=== PATIENT | male | born 1990 | race Two or more races ===

== ENCOUNTER 2024-08-11 13:10 | Outpatient (RCR) | payer MEDICAID, SELFPAY ==
--- NOTE | 2024-08-11 18:32 | CTCCONSULT_ITS ---
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 Paulie Lind PA-C [facility] Reason for consultation. Patient was suspected right testicular cancer with abdominal mets. History of Present Illness: Patient is a 33-year-old with right testicular pain mass noted for the past 9 months but delayed due to inability to find a specialist to deal with this problem according to patient, and was recently was seen at [facility] emergency room 07/18/2024. CT scan showed retroperitoneal adenopathy with surrounding inflammatory changes. Heterogeneous right testis mass measuring 5.8 cm. Ultrasound of the right testes enlarged and heterogeneous 5.8 x 4.4 x 4.3 cm. ER referred to another urologist who initially scheduled patient for follow-up but later denied due to insurance issues. Labs drawn at the ER of [facility] were unremarkable. Patient now referred to the cancer treatment center here at [facility] Past Medical History: Denies other than above Family history. Breast lung cancer colon cancer in extended family. No testicular cancers. Meds. Tramadol ibuprofen Allergies none to meds Social History: patient currently unemployed Review of Systems: Recent change in vision pain in abdomen recent back pain Physical Exam: General: Adequate nourished appearing gentleman in no acute distress HEENT: Atraumatic normocephalic extraocular is intact no oral lesion no cervical or supraclavicular adenopathy CV: Chest clear to auscultation heart regular rate and rhythm ABD: Soft and organomegaly or tenderness EXT: Large palpable right testicular mass 6 x 4 cm; normal feeling left testicle. Assessment: Plan:1. Likely right testicular malignancy with retroperitoneal mets noted radiographically. 2. Made contact with various urologists over the past few months but due to insurance issues surgery was never performed. 3. Will check tumor markers beta-hCG alpha-fetoprotein and LDH. 4. Refer patient to Dr. Gusman urologist 5. Will see patient in a month to check on the surgical path findings and labs. 6. Thank you very much for allowing. me to evaluate this patient. Cc: Paulie Lind PA-C [facility] Electronically signed by: Anthony Hubbard MD, DABR 08/11/2024 6:29 PM
== END 2024-08-22 23:59 | disposition home or self-care (01) ==
LOC: SCTC 13:10
PROVIDERS: PCP Physician Assistant Medical; Referring Provider Physician Assistant Medical; Visit Provider Radiology Therapeutic Radiology
DX: C62.11 Malignant neoplasm of descended right testis (principal); C79.89 Secondary malignant neoplasm of other specified sites
CPT/HCPCS: 99213; G0463

== ENCOUNTER 2024-09-13 06:10 | Day surgery (SDC) | payer MEDICAID, SELFPAY ==
[2024-09-12 12:19] VITALS: BMI 39.9
[2024-09-12 13:08] LABS: Basophils % (Auto) 0 % (0-2.5); Eosinophils # (Auto) 0.2 Thou/mm3 (0.0-0.5); Eosinophils % (Auto) 2 % (0-10); Hematocrit 42.5 % (41.0-53.0); Hemoglobin 14.4 g/dL (13.5-16.0); Immature Granulocytes % (Auto) 1 % (0-0); Immature Granulocytes Auto 0.07 Thou/mm3 (0.00-0.00); Lymphocytes % (Auto) 16 % (10-50); Mean Corpuscular HGB Conc 33.9 g/dl (31.0-37.0); Mean Corpuscular Hemoglobin 29.3 pg (25.0-35.0); Mean Corpuscular Volume 87 fL (80-100); Monocytes # (Auto) 1.3 Thou/mm3 (0.0-0.8); Monocytes % (Auto) 11 % (0-12); Neutrophils # (Auto) 8.6 Thou/mm3 (1.8-7.7); Neutrophils % (Auto) 71 % (37-80); Nucleated Red Blood Cell % 0 /100 WBC (0); Platelet Count 380 Thou/mm3 (140-440); RDW Standard Deviation 47.9 fL (35.1-43.9); Red Blood Count 4.91 Miln/mm3 (4.50-5.90); White Blood Count 12.2 Thou/mm3 (3.8-10.6)
[2024-09-12 13:21] LABS: Collection Type, Urine Clean Catch
[2024-09-12 13:28] LABS: Anion Gap 8 (7-16); BUN/Creatinine Ratio 12 Ratio (12-20); Blood Urea Nitrogen 15 mg/dL (9-23); Calcium 9.9 mg/dL (8.3-10.6); Carbon Dioxide 25.1 mMol/L (20.0-31.0); Chloride 105 mMol/L (98-107); Creatinine (Component) 1.3 mg/dL (0.6-1.3); Glucose 114 mg/dL (74-106); Osmolality,Calculated 277 (275-295); Potassium 3.6 mMol/L (3.4-5.1); Sodium 138 mMol/L (136-145); eGFR > 60 See Note
--- NOTE | 2024-09-12 13:55 | ESHP_ITS ---
RE: MIGUEL BROWN : 1990 DATE OF ADMISSION: 09/13/2024 HISTORY OF PRESENT ILLNESS: A 33-year-old gentleman who was referred to me by Dr. Anthony Hubbard. The patient has a right testicular tumor for about a year or more. He has been having some pain. PAST SURGICAL HISTORY: Included surgery on his neck for some abscess. PAST MEDICAL HISTORY: There is no history of diabetes mellitus. No history of hypertension. SOCIAL HISTORY: He has two children. ALLERGIES: NONE KNOWN. HOME MEDICATIONS: He takes; 1. Tramadol. 2. Motrin. PHYSICAL EXAMINATION: HEENT: Normal. NECK: Supple. LUNGS: Clear. CARDIOVASCULAR: Heart sounds are normal. VITAL SIGNS: The patient weighs 246 pounds. ABDOMEN: Soft. There is no organomegaly. There are no masses in his left neck. There are no palpable masses in his abdomen. GENITOURINARY: Phallus is normal. Testis are down in scrotum. There is a right-sided testicular tumor 3 to 4 inches in size. LABORATORY DATA: Right testicular ultrasound revealed a tumor in his right testis. KUB examination is negative. The patient had a CT scan of the abdomen and pelvis, which revealed lymph nodes are 2.1 cm in the retroperitoneal area. Chest x-ray is negative. IMPRESSION: Right testicular tumor, which is quite large. PLAN: Right testis exploration, possible frozen section, biopsy, and possible right radical orchiectomy. Planned procedure, risks and complications have been discussed with the patient. The patient has understood them and agreed to proceed. The patient had alpha- fetoprotein and beta ICG done before. Thank you very much for your kind referral and for allowing me to see this patient. cc: Anthony Hubbard MD DT: 13:33:09 TT: 13:53:00 Ref: [id number] - TID: [id number]
[2024-09-12 14:22] LABS: Bilirubin,Urine 1+ (Negative); Blood,Urine 1+ (Negative); Clarity,Urine Clear (Clear/Hazy); Color,Urine Drk-Yellow (Lt Yel-Yel); Glucose, Urine Negative (Negative); Hyaline Casts,Urine < 1 /hpf (0-1); Ketones,Urine Negative (Negative); Leukocyte Esterase,Urine Negative (Negative); Nitrite,Urine Negative (Negative); Protein,Urine 1+ (Neg - Trace); RBC,Urine 31 /hpf (0-3); Specific Gravity,Urine 1.041 (1.001-1.035); Squamous Epithelial Cell,Urine 1 /hpf (0-5); Urobilinogen,Urine 12 mg/dL (0.0-1.0); WBC,Urine 3 /hpf (0-5)
--- NOTE | 2024-09-12 15:11 | SUR.PREOP ---
WBC 12.2, Dr Gusman notified and Ok to proceed.
[2024-09-13] VITALS (8 sets, daily range): BP systolic 113–149; BP diastolic 78–92; PULSE 89–124; RESP 14–20; TEMP 36.2–36.9; O2SAT 95–98; BMI 39.4
--- NOTE | 2024-09-13 07:45 | CHAP ---
Prayed with patient for upcoming procedure.
[2024-09-13] MEDS: ALBUTEROL RT 2.5 MG/3 ML NEBU INH (07:58)
--- NOTE | 2024-09-13 10:10 | SUR.PHASEI ---
pt received from OR in recovery bay 3. pt asleep but responds to voice, breathing unlabored on oxymask 8l. v/s stable. pt dressing to right lower abd cdi. report received from Arron Alcaraz and Som CONROY.
--- NOTE | 2024-09-13 10:32 | XR_ITS ---
Examination: AP chest single view TECHNIQUE: Portable AP sitting chest single view Exam date and time: September 13, 2024 1042 hours INDICATIONS: Postoperative chest x-ray FINDINGS: No significant cardiac enlargement Mild vascular congestion No pneumonia or pulmonary edema Mild osteopenia IMPRESSION: Mild vascular congestion
[2024-09-13] MEDS: fentaNYL CIT INJ 50 mCg/ML AMP 2ML 25 MCG IV (10:36)
--- NOTE | 2024-09-13 11:16 | ESOP_ITS ---
RE: MIGUEL BROWN : 1990 DATE OF OPERATION: 09/13/2024 PREOPERATIVE DIAGNOSES: Large right testicular tumor 3-4 inches in size with CT scan showing lymph node enlargement in the retroperitoneum and high tumor markers for the testis including beta hCG and alpha-fetoprotein. POSTOPERATIVE DIAGNOSES: Large right testicular tumor 3-4 inches in size with CT scan showing lymph node enlargement in the retroperitoneum and high tumor markers for the testis including beta hCG and alpha-fetoprotein and right testicular tumor. PROCEDURE PERFORMED: Right testicular exploration, frozen section biopsy and right radical orchiectomy. ANESTHESIA: General by Dr. Mercado. INDICATION: The patient is a 33-year-old gentleman with a large right testicular tumor who has been having this tumor for more than a year. He has been seen by several urologists in [place], but he could not get any treatment. He was seen by Dr. Anthony Hubbard and he referred this patient to me for his large right scrotal mass, possibly a tumor of the right testis. The patient had a chest x-ray, which did not show any evidence of metastases. The patient had a CT scan of the abdomen and pelvis, which revealed retroperitoneal lymph nodes. The patient had beta hCG and alpha-fetoprotein. They both are high. The patient was now scheduled to have right testis exploration, frozen section biopsy of the right testis and possible right radical orchiectomy. Planned procedure, risks, and complications have been discussed with the patient. The patient understood them and agreed to proceed. DESCRIPTION OF PROCEDURE: After the patient was brought to the operating table under adequate general anesthesia given by Dr. Mercado, he was placed in supine position. Parts were prepped and draped in the usual fashion. The patient is quite obese. Right inguinal incision was then made approximately 4 inches long. Skin and subcutaneous tissues were incised. Hemostasis was obtained. External oblique aponeurosis was then opened. The external ring was opened. Spermatic cord structures were isolated and were swung on a quarter-inch Carmine drain, which was used as a tourniquet for the spermatic cord. The right testis was dissected from the surrounding structures and was delivered into the wound from the scrotum. The testis was opened and small segment was taken for the biopsy and was submitted to pathologist, which reported this to be a malignant tumor, so we decided to remove the right testis with a spermatic cord. Hemostats were placed on the spermatic cord at the internal ring. The vas deferens was ligated separately. The testis with its tumor and the spermatic cord were excised at the internal ring and the cord structures and vas deferens were ligated with 0 silk sutures. Complete hemostasis was obtained. The wound was irrigated with sterile water. External oblique aponeurosis was then closed with continuous sutures of 3-0 Vicryl. Subcutaneous tissue was closed with continuous sutures of 3-0 chromic gut. Local anesthetic was injected into the wound for the control of pain. Skin was reapproximated back by placing interrupted clips. Sterile dressing was then applied. The patient was then transferred to the recovery room in a satisfactory condition having tolerated the entire procedure well. Sponge count and needle count at the end of the procedure was found to be correct. Estimated blood loss was approximately 5 mL. cc: Anthony Hubbard MD DT: 10:40:10 TT: 11:15:00 Ref: [id number] - TID: [id number]
--- NOTE | 2024-09-13 11:20 | SUR.PHASEII ---
pt awake and alert, breathing unlabored on room air. v/s stable. pt dressing to lower abd cdi. pt able to ambulate to wheelchair with steady gait. d/c instructions given with mother Loyda, all questions answered. pt d/c via wheelchair with all belongings.
== END 2024-09-13 11:20 | disposition home or self-care (01) ==
PROVIDERS: PCP Radiology Therapeutic Radiology; Referring Provider Surgery; Visit Provider Surgery
PROC: (CPT 55110; principal; 2024-09-13 08:30)
PROC: (CPT 54530; 2024-09-13 08:30)
DX: C62.91 Malignant neoplasm of right testis, unspecified whether descended or undescended (principal); E66.9 Obesity, unspecified; Z68.39 Body mass index [BMI] 39.0-39.9, adult
CPT/HCPCS: 54530; 36415; 80048; 81001; 85025; A4217; A4649; J0690; J1100; J2250; J2405; J2704; J3010; J3490; L8330; J1596

== ENCOUNTER 2024-09-20 13:26 | Outpatient (RCR) | payer MEDICAID, SELFPAY ==
--- NOTE | 2024-09-08 14:41 | CTCFLWUP_ITS ---
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 Patient clearly has right testicular cancer with abdominal mets and now with apparent left neck mets. We are fortunate to have Dr. Gusman, experienced urologist who has seen patient with scheduled surgery for next week 09/13/2024. 08/18/2024 labs show high LDH of 397, beta-hCG 1191, AFP 11.4 Took the liberty of ordering a port and Dr. Cates's referral even before we have the pathology of removed testicle, for the obviously rapidly spreading testicular cancer. Assessment. 1. Rapidly spreading right testicular cancer now involving left neck. 2. chest abdomen pelvis along with neck CT due to the new appearance of a left neck mass. Prior CT of 07/19/2024 at [facility] did not have involvement of the neck 3. Port placement heme-onc referral. 4. Shall see patient again in 2 weeks following the surgery. Electronically signed by: Anthony Hubbard M.D. 09/08/2024 2:39 PM
== END 2024-09-21 23:59 | disposition home or self-care (01) ==
LOC: SCTC 13:26
PROVIDERS: PCP Physician Assistant Medical; Referring Provider Physician Assistant Medical; Visit Provider Radiology Therapeutic Radiology
DX: C62.11 Malignant neoplasm of descended right testis (principal); C79.89 Secondary malignant neoplasm of other specified sites; Z90.79 Acquired absence of other genital organ(s)
CPT/HCPCS: 99213; G0463

== ENCOUNTER 2024-09-27 06:37 | Outpatient (CLI) | payer MEDICAID, SELFPAY ==
[2024-09-22 10:42] VITALS: BMI 44.2
[2024-09-23 10:20] LABS: Basophils % (Auto) 0 % (0-2.5); Eosinophils # (Auto) 0.2 Thou/mm3 (0.0-0.5); Eosinophils % (Auto) 2 % (0-10); Hematocrit 37.6 % (41.0-53.0); Hemoglobin 12.7 g/dL (13.5-16.0); Immature Granulocytes % (Auto) 1 % (0-0); Immature Granulocytes Auto 0.06 Thou/mm3 (0.00-0.00); Lymphocytes # (Auto) 1.6 Thou/mm3 (1.0-4.8); Lymphocytes % (Auto) 16 % (10-50); Mean Corpuscular HGB Conc 33.8 g/dl (31.0-37.0); Mean Corpuscular Hemoglobin 29.1 pg (25.0-35.0); Mean Corpuscular Volume 86 fL (80-100); Monocytes % (Auto) 10 % (0-12); Neutrophils # (Auto) 7.1 Thou/mm3 (1.8-7.7); Neutrophils % (Auto) 71 % (37-80); Nucleated Red Blood Cell % 0 /100 WBC (0); Platelet Count 510 Thou/mm3 (140-440); Red Blood Count 4.36 Miln/mm3 (4.50-5.90)
[2024-09-23 10:34] LABS: INR 1.1 (0.9-1.3); Partial Thromboplastin Time 34.4 Seconds (22.0-36.0); Prothrombin Time 11.8 Seconds (9.0-12.2)
[2024-09-27] VITALS (17 sets, daily range): BP systolic 120–160; BP diastolic 71–104; PULSE 98–119; RESP 15–25; TEMP 36.8–36.9; O2SAT 92–100
--- NOTE | 2024-09-27 09:00 | XR_ITS ---
Examination: IR Venous implantation Port-A-Cath Ultrasound-guided needle placement right internal jugular vein. Fluoroscopy AP Chest, portable single view Exam date and time: September 27, 2024 1009 hours INDICATIONS: Diagnosis malignant neoplasm testis, requiring long-term intravenous chemotherapy. Informed consent provided Technique: A timeout was completed, verifying correct patient, procedure, site, positioning, and special equipment if applicable The patient was placed in a dependent position appropriate for central line placement based on the vein to be cannulated. The patient's right neck and chest was prepped and draped in sterile fashion. Maximum Sterile Barrier Technique used including cap, mask, sterile gown, sterile gloves, and sterile full body drape. If ultrasound technique used: sterile gel and sterile probe covers. Hand Hygiene performed using proper scrub, soap and water, or alcohol-based hand rub. Site right portable apparatus utilized to confirm patency of the right internal jugular vein Utilizing ultrasonographic guidance successful 21-gauge needle puncture into the right internal jugular vein Ultrasound images were recorded and stored. Successful micropuncture with a 21-gauge needle was performed. 0.18 wire guide was introduced into the IVC under fluoroscopic guidance. The wires is then exchanged for a 0.25 J-wire guide placed in the vena cava. Blunt dissection utilized to form subcutaneous pocket in the upper anterior chest 8 Turkish 23 cm Port-A-Cath lead then placed subcutaneous through a venous sheath into the right internal jugular vein in proper position under fluoroscopic guidance The attending radiologist was present for the entire procedure Estimated blood loss2 cc. Findings: Under fluoroscopy, the tip of the Port-A-Cath is in good position in the vena cava. Portable chest x-ray, post Port-A-Cath placement, as ordered. Impression: Successful ultrasound-guided needle placement right internal blood or vein. Successful and/or venous implantation Port-A-Cath Fluoroscopy 0.3 minute radiation dose 5.22 milligray 1 spot fluoroscopic chest film. AP portable chest completion procedure demonstrates satisfactory position Port-A-Cath tip SVC. May use Port-A-Cath
[2024-09-27] MEDS: SODIUM CHLORIDE 0.9% 500 ML 500 ML 100 ML IV (09:52)
[2024-09-27] MEDS: ceFAZolin/D5W 1 GM IVPB 1 GM/50 ML BAG IV (10:25)
[2024-09-27] MEDS: CEFAZOLIN STFIELD (10:30)
[2024-09-27] MEDS: DEXTROSE STFIELD (10:30)
[2024-09-27] MEDS: HEPARIN SOD LOCK SYR 100 UNIT/ML 500 UNIT STFIELD (10:30)
[2024-09-27] MEDS: fentaNYL CIT INJ 50 mCg/ML AMP 2ML 100 MCG IVP (11:02)
[2024-09-27] MEDS: LIDOCAINE INJ PF 1% 30 ML VIAL 10 ML INFL (11:05)
[2024-09-27] MEDS: LIDOCAINE 1% W/EPI 1:100K 20 ML VIAL 7 ML INFL (11:06)
[2024-09-27] MEDS: fentaNYL CIT INJ 50 mCg/ML AMP 2ML IV (11:10)
--- NOTE | 2024-09-27 13:38 | PC.NURSE ---
1136 patient is awake, alert, breathing unlabored, s/p port placement, dressing to right chest dry with no bleeding or hematoma, report received from Yao JADE, patient to recover for 1hr. 1230 Report given to Loyda JADE who will get patient ready to go home. Family at bedside.
== END 2024-09-27 13:05 | disposition home or self-care (01) ==
PROVIDERS: Radiology Diagnostic Radiology; PCP Family Medicine; Referring Provider Radiology Therapeutic Radiology; Visit Provider Radiology Therapeutic Radiology
DX: C62.11 Malignant neoplasm of descended right testis (principal); Z01.812 Encounter for preprocedural laboratory examination
CPT/HCPCS: 36558; 36415; 77001; 85025; 85610; 85730; J0689; J1642; J3010; J3490; J7040

== ENCOUNTER 2024-10-07 08:29 | Outpatient (RCR) | payer MEDICAID, SELFPAY ==
--- NOTE | 2024-10-02 21:08 | CTCCONSULT_ITS ---
Patient: RUDDY CEDILLO : 1990 MR#: [id number] Page 3 of 5 CONSULTATION NOTE DATE OF CONSULTATION: 09/29/2024 NAME: RUDDY CEDILLO ACCOUNT: [id number] : 1990 AGE: 34 REFERRING PHYSICIAN: Brooks Cates MD PRIMARY PHYSICIAN: REASON FOR VISIT: Testicular cancer establishing care ONCOLOGY HISTORY: DIAGNOSIS: Malignant neoplasm of descended right testis [ICD10] C62.11 DATE OF DIAGNOSIS: STAGE/TNM: Stage IIIc TREATMENT HISTORY: Care?Plan Start?Date Cycle Day Intent Cisplat?Etoposide?Bleomycin?q21?days?3?cycles 09/29/2024 1 21 Curative?(primary) HISTORY OF PRESENT ILLNESS: Subjective: Chief Complaint Pain, left supraclavicular mass, pain in both lower extremities History of Present Illness Ruddy Cedillo, a male patient with testicular cancer, presents for follow-up after a recent diagnosis and surgical intervention. He reports experiencing pain in both lower extremities and has a left supraclavicular mass. The patient was initially misdiagnosed with a urinary tract infection in June when he first sought medical attention. Upon a second visit, further imaging studies including MRIs and CTs were performed, leading to the diagnosis of testicular cancer. On September 13, 2024, the patient underwent a right radical orchiectomy. He has not worked since June 13, which may be contributing to his leg pain. Mr. Cedillo mentions having a little bit of pain right now, though the specific location and nature of this pain are not clearly stated. He reports pain in both legs, but it is unclear if this is a new symptom or a chronic condition. The patient also has a lump growing on his shoulder, identified as a lymph node, which is suspected to be cancerous. The patient's ability to work has been impacted, as he has not been employed since June 13. He typically wears knee pads for work, suggesting a physically demanding occupation. The patient has two children, though their ages are not specified. Medical History - Testicular cancer, diagnosed in June 2024 - Hospitalization at [facility] in June 2024 for testicular cancer workup - Emergency room visit for suspected urinary tract infection prior to cancer diagnosis Surgical History - Right radical orchiectomy on September 13, 2024 for testicular cancer Social History - Occupation: Patient has not worked since June 13 - Children: Has children (number and ages not specified) - Diet: Advised to reduce total calorie intake and follow a protein-rich diet with chicken, fish, and eggs - Exercise: Advised to do breathing exercises 3-4 times a day, walk, and stay active - Insurance: Medicare Review of Systems General: Positive for pain. Musculoskeletal: Positive for leg pain in both lower extremities. Respiratory: Negative for shortness of breath. Objective: Physical Examination General: Patient appears younger than stated age, looking like a 50-year-old man despite being much younger. Neck: Left supraclavicular mass noted. Musculoskeletal: Pain noted in both lower extremities. 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 Social History Note:?LIVES PARENTS AND CHILDREN MEDICATIONS: 1. cyclobenzaprine - 10 mg 1 tab Three times a day 2. gabapentin - 300 mg 1 Capsule Three times a day 3. ibuprofen - 800 mg Four times a day 4. traMADol - 50 mg 1 tab q6 5. tramadol - 50 mg As directed 6. Wellbutrin SR - 150 mg 1 Daily Medications Last Reconciled by Sameera Armstrong RN on 09/29/2024 ALLERGIES: No Known Drug Allergies REVIEW OF SYSTEMS: A complete 14-point review of systems was performed and is negative except as noted in interval history. PHYSICAL EXAMINATION: VITAL SIGNS: Temperature?99.1, B/P?123/86, Height?66?inches, Oxygen?Saturation?97% Weight?234?lbs (Change?since?09/20/24:?-4?lbs) PAIN: 8 - Very severe pain ECOG Performance Status: 0 - Asymptomatic and fully active GENERAL APPEARANCE: Appears well, in no apparent distress, appropriately interactive. HEENT: Normocephalic, no temporal wasting, normal conjunctiva, no scleral icterus, normal hearing, lips without lesions, neck normal range of motion. CARDIOVASCULAR: Not assessed. PULMONARY: Normal respiratory effort, no respiratory distress or use of accessory muscles, speaking in full sentences, no tachypnea. EXTREMITIES: Bilateral calf tenderness SKIN: Normal skin appearance. NEUROLOGIC: Alert and oriented x4. PSHYCHIATRIC: Appropriate affect, mood normal, behavior normal, intact thought and speech. LABORATORY DATA: I have personally reviewed and interpreted each of the patient?s relevant lab tests, abnormal findings are below: Date 09/12/24 09/23/24 ??WHITE?BLOOD?COUNT?(Thou/mm3) 12.2?H 10.0 ??RED?BLOOD?COUNT?(Miln/mm3) 4.91 4.36?L ??HEMOGLOBIN?(gm/dl) 14.4 12.7?L ??HEMATOCRIT?(%) 42.5 37.6?L ??PLATELET?COUNT?(Thou/mm3) 380 510?H ??NEUTROPHILS?%,?AUTO?(%) 71 71 ??LYMPH?%,?AUTO?(%) 16 16 ??NEUTROPHILS,?AUTO?(Thou/mm3) 8.6?H 7.1 ??GLUCOSE,RANDOM?(mg/dL) 114?H ? ??BLOOD?UREA?NITROGEN?(mg/dL) 15 ? ??CREATININE?(mg/dL) 1.30 ? ??SODIUM?(mmol/L) 138 ? ??POTASSIUM?(mmol/L) 3.6 ? ??CHLORIDE?(mmol/L) 105 ? ??CrCl?(CandG)?(ml/min) 95.75 ? ??CALCIUM,?SERUM?(mg/dL) 9.9 ? ASSESSMENT/PLAN: Assessment and Plan: Nguyen Fox, male patient with testicular cancer, presenting with pain and a left supraclavicular mass. Testicular Cancer Assessment: Patient diagnosed with testicular cancer, status post right radical orchiectomy on September 13, 2024. 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 Pre-orchiectomy labs showed elevated tumor markers: beta HCG 119.1, AFP 11.4, LDH 390.7. CT scan of chest negative for metastasis, but patient has a left supraclavicular mass, likely metastatic. Based on these findings, patient is assessed to have stage 3C testicular cancer. Plan: - Initiate chemotherapy regimen: BEP (Bleomycin, Etoposide, Cisplatin) for 4 cycles - Order CT scan of chest, abdomen, and pelvis with and without contrast - Order whole body scan - Schedule echocardiogram - Order ultrasound of both legs to evaluate for blood clots - Schedule chemo education class before treatment initiation - Refer patient to [facility] for higher-level care - Monitor for shortness of breath due to potential lung complications from chemotherapy - Advise patient on breathing exercises 3-4 times daily - Instruct patient to shower daily to prevent skin infections - Recommend protein-rich diet (chicken, fish, egg) and increased water intake - Advise weight loss and increased physical activity - Follow-up with repeat scans after 4 cycles of chemotherapy Bilateral Lower Extremity Pain Assessment: Patient reports pain in both legs. Given the recent cancer diagnosis and prolonged inactivity since June 13, there is concern for potential deep vein thrombosis. Plan: - Order bilateral lower extremity ultrasound to evaluate for blood clots - Encourage regular walking and exercise as tolerated RETURN TO CLINIC: BILLING AND COMPLIANCE: I reviewed external records from providers outside my specialty as summarized above. I spent a total of 50 minutes on this patient?s care on the day of their visit excluding time spent related to any billed procedures. This time includes time spent with the patient as well as time spent documenting in the medical record, reviewing patients records and tests, obtaining history, placing orders, communicating with other healthcare professionals, counseling the patient, family or caregiver, and/or care coordination for the diagnoses above. Electronically Signed by: Brooks Cates MD T: 9:06 PM CC: PCP: Referring: Brooks Cates This document was completed utilizing speech recognition software. Grammatical errors, random word insertions, pronoun errors, and incomplete sentences are an occasional consequence of this system due to software limitations, ambient noise, and hardware issues. Any formal questions or concerns about the content, text or information contained within the body of this dictation should be directly addressed to the provider for clarification.
== END 2024-10-22 23:59 | disposition home or self-care (01) ==
LOC: SCTC 08:29
PROVIDERS: PCP Family Medicine; Referring Provider Internal Medicine Hematology & Oncology; Visit Provider Internal Medicine Hematology & Oncology
DX: C62.11 Malignant neoplasm of descended right testis (principal); Z90.79 Acquired absence of other genital organ(s); M79.605 Pain in left leg; M79.604 Pain in right leg
CPT/HCPCS: 99213; G0463

== ENCOUNTER → 2024-10-11 | Outpatient (CLI) | payer MEDICAID, SELFPAY ==
--- NOTE | 2024-10-11 13:30 | XR_ITS ---
Examination: CT chest with intravenous contrast CT abdomen with intravenous contrast CT pelvis with intravenous contrast 2-D coronal and sagittal reconstructions Time of exam: October 11, 2024 1402 hours INDICATIONS: Diagnosis right testicular carcinoma one year ago, restaging CTDI: vol (mGy) : 20.4 DLP: (mGycm): 1685 Technique: Multiple axial images of the chest, abdomen and pelvis with intravenous contrast, 3.0 mm slice thickness. Images obtained post intravenous injection Isovue 370 60 cc. 2-D sagittal and coronal reconstructions. Low dose protocols were performed. One or more of the following dose reduction techniques were used; automated exposure control, adjustment of the mA and/or KV according to patient size, use of iterative reconstruction technique. Findings: No thoracic aortic aneurysm dilatation Pulmonary artery segments are not enlarged No paratracheal tracheobronchial or bronchopulmonary adenopathy 6 mm pulmonary nodule in the right middle lobe No pneumonia or pulmonary edema No visualized liver or splenic lesion No gallstones No pancreatic or adrenal mass Necrotic adenopathy pericaval, extending into the mesentery, the largest lymph node 35 mm, 42 mm Adenopathy extends into the right common iliac region including 18 mm, 16 mm lymph nodes Urinary bladder intact IMPRESSION: 6 mm pulmonary nodule right middle lobe Necrotic pericaval lymphadenopathy extending into the mesentery Right common iliac lymphadenopathy
--- NOTE | 2024-10-11 14:00 | XR_ITS ---
Examination: CT soft tissue neck, with intravenous contrast. 2-D coronal reconstructions. 2-D sagittal reconstructions. Date and time of exam :October 11, 2024 1402 hours INDICATIONS: Diagnosis malignant neoplasm testicle one year ago, staging. CTDI: vol (mGy):15.9 DLP: (mGycm):192 Technique: 1.25 mm axial sections of the neck of the obtained. Coronal and sagittal reconstructions have been obtained. Intravenous contrast administered 60 cc Isovue-370. Low dose protocols were performed. One or more of the following dose reduction techniques were used; automated exposure control, adjustment of the mA and/or KV according to patient size, use of iterative reconstruction technique. Findings: Bilateral carotid triangle lymph nodes, the largest on the left side 19 mm Symmetrical nasopharynx oropharynx Symmetrical submandibular gland Significant left supraclavicular lymphadenopathy, the largest lymph node 24 mm The larynx appears normal Epiglottis is not enlarged IMPRESSION: Metastatic lymphadenopathy as above The largest left supraclavicular lymph node is amenable to CT-guided biopsy as clinically warranted
== END | disposition home or self-care (01) ==
LOC: CCTX 13:45
PROVIDERS: PCP Family Medicine; Referring Provider Radiology Therapeutic Radiology; Visit Provider Radiology Therapeutic Radiology
DX: R59.0 Localized enlarged lymph nodes (principal); R91.1 Solitary pulmonary nodule; C62.11 Malignant neoplasm of descended right testis
CPT/HCPCS: 70491; 71260; 74177; A4649; Q9967

== ENCOUNTER 2024-11-21 07:06 | Outpatient (RCR) | payer MEDICAID, SELFPAY ==
--- NOTE | 2024-10-26 14:58 | CTCFLWUP_ITS ---
Patient: RUDDY CEDILLO : 1990 Page 2 of 2 FOLLOW UP NOTE DATE OF SERVICE: 10/26/2024 NAME: RUDDY CEDILLO ACCOUNT: [id number] : 1990 AGE: 34 INTERVAL HISTORY: Subjective: Chief Complaint Testicular pain and swelling, difficulty sleeping, depression History of Present Illness 34-year-old male with testicular cancer presenting for follow-up and chemotherapy planning. The patient reports discomfort and pain in his right testicle, which he describes as feeling like fluid. He mentions that one of his testicles has been removed. The patient is experiencing sleep disturbances and constantly requests massages for comfort. The patient's mother, who accompanies him, reports that he has been waiting for approximately a year to have the cancer removed. The patient appears depressed and fatigued, with his mother noting that he acts like a 70-year-old man despite being 34 years old. He has been having difficulty with self-care, including showering, and requires encouragement to walk. 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 That same night, he noticed his testicle had become smaller. He took a picture and sent it to his girlfriend, an [employer], who advised him to seek medical attention. The patient has not yet started chemotherapy. He reports completing a echo but has not undergone other scheduled tests including a brain MRI, ultrasound, and pulmonary function test (PFT). He has an upcoming appointment for lung testing on the . The patient has not completed a hearing test, stating he didn't have a problem with his hearing. Medications and Supplements - Bleomycin - Cisplatin - Topotecan Review of Systems General: Positive for fatigue. Genitourinary: Positive for testicular discomfort, swelling in right testicle. Musculoskeletal: Positive for inguinal hernia symptoms. Psychiatric: Positive for depression. Objective: Physical Examination General: Patient appears uncomfortable and tired. Genitourinary: Right testicle shows signs of fluid accumulation, possibly a hydrocele and small hard mass in scrotum. Small hernia noted. Lymphatic: Supraclavicular lymph node palpated. Laboratory, Imaging, and Diagnostic Test Results - CT scan: Necrotic pericaval lymphadenopathy extending into the mesentery. 6 mm nodule in the middle lobe. - Tumor markers: Elevated (specific values not provided) - LDH: Not performed ONCOLOGY HISTORY: DIAGNOSIS: Malignant neoplasm of descended right testis [ICD10] C62.11 DATE OF DIAGNOSIS: 09/13/2024 STAGE/TNM: Stage IIIc- non seminoma TREATMENT HISTORY: Care?Plan Start?Date Cycle Day Intent Cisplat?Etoposide?Bleomycin?q21?days?3?cycles 10/31/2024 1 21 Curative?(primary) HISTORY OF PRESENT ILLNESS: Subjective: Chief Complaint Pain, left supraclavicular mass, pain in both lower extremities History of Present Illness Ruddy Cedillo, a male patient with testicular cancer, presents for follow-up after a recent diagnosis and surgical intervention. He reports experiencing pain in both lower extremities and has a left supraclavicular mass. The patient was initially misdiagnosed with a urinary tract infection in June when he first sought medical attention. Upon a second visit, further imaging studies including MRIs and CTs were performed, leading to the diagnosis of testicular cancer. On September 13, 2024, the patient underwent a right radical orchiectomy. He has not worked since June 13, which may be contributing to his leg pain. Mr. Cedillo mentions having a little bit of pain right now, though the specific location and nature of this pain are not clearly stated. He reports pain in both legs, but it is unclear if this is a new symptom or a chronic condition. The patient also has a lump growing on his shoulder, identified as a lymph node, which is suspected to be cancerous. The patient's ability to work has been impacted, as he has not been employed since June 13. He typically wears knee pads for work, suggesting a physically demanding occupation. The patient has two children, though their ages are not specified. Medical History - Testicular cancer, diagnosed in June 2024 - Hospitalization at [facility] in June 2024 for testicular cancer workup - Emergency room visit for suspected urinary tract infection prior to cancer diagnosis Surgical History - Right radical orchiectomy on September 13, 2024 for testicular cancer Social History - Occupation: Patient has not worked since June 13 - Children: Has children (number and ages not specified) - Diet: Advised to reduce total calorie intake and follow a protein-rich diet with chicken, fish, and eggs - Exercise: Advised to do breathing exercises 3-4 times a day, walk, and stay active - Insurance: Medicare Review of Systems General: Positive for pain. Musculoskeletal: Positive for leg pain in both lower extremities. Respiratory: Negative for shortness of breath. Objective: Physical Examination General: Patient appears younger than stated age, looking like a 34-year-old man despite being much younger. Neck: Left supraclavicular mass noted. Musculoskeletal: Pain noted in both lower extremities. 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 - Composition: Embryonal carcinoma 90%, seminoma 10% - Staging: T3NX - Tumor size: 15x6.5x5 cm - Additional findings: Tumor directly invades spermatic cord soft tissue with or without lymphovascular invasion - Regional nodes: Not identified OTHER MEDICAL HISTORY/CONDITIONS: PRE-?DIABETES ALLERGIES?SEASONAL DENTAL??ABCESS??DRAINAGE FAMILY HISTORY: Children: GREAT AUNTS/ BREAST LUNG [employer] SOCIAL HISTORY: Education?Level:?Completed 11th grade Marital?Status:?Single Tobacco?Pack?per?Day:?1 Tobacco?Use?Years:?18 ETOH?Use:?DENIES Drug?Note:?USED?[facility] Social History Note:?LIVES PARENTS AND CHILDREN MEDICATIONS: 1. Compazine - 5 mg 5 mg Daily 2. cyclobenzaprine - 10 mg 1 tab Three times a day 3. gabapentin - 300 mg 1 Capsule Three times a day 4. ibuprofen - 800 mg Four times a day 5. ondansetron - 8 mg 8 mg Daily 6. traMADol - 50 mg 1 tab q6 7. tramadol - 50 mg As directed 8. Wellbutrin SR - 150 mg 1 Daily Medications Last Reconciled by Massiel Momin MA on 10/26/2024 ALLERGIES: No Known Drug Allergies REVIEW OF SYSTEMS: A complete 14-point review of systems was performed and is negative except as noted in interval history. PHYSICAL EXAMINATION: VITAL SIGNS: Temperature?98.4, B/P?135/89, Oxygen?Saturation?96% Weight?226?lbs (Change?since?10/07/24:?-1?lbs) PAIN: 3 - Between mild and moderate pain ECOG Performance Status: 1 - Symptomatic; ambulatory; restricted in strenuous activity GENERAL APPEARANCE: Appears well, in no apparent distress, appropriately interactive. HEENT: Normocephalic, no temporal wasting, normal conjunctiva, no scleral icterus, normal hearing, lips without lesions, neck normal range of motion. CARDIOVASCULAR: Not assessed. PULMONARY: Normal respiratory effort, no respiratory distress or use of accessory muscles, speaking in full sentences, no tachypnea. EXTREMITIES: Bilateral calf tenderness SKIN: Normal skin appearance. NEUROLOGIC: Alert and oriented x4. PSHYCHIATRIC: Appropriate affect, mood normal, behavior normal, intact thought and speech. LABORATORY DATA: I have personally reviewed and interpreted each of the patient?s relevant lab tests, abnormal findings are below: Date 09/12/24 09/23/24 ??WHITE?BLOOD?COUNT?(Thou/mm3) 12.2?H 10.0 ??RED?BLOOD?COUNT?(Miln/mm3) 4.91 4.36?L ??HEMOGLOBIN?(gm/dl) 14.4 12.7?L ??HEMATOCRIT?(%) 42.5 37.6?L ??PLATELET?COUNT?(Thou/mm3) 380 510?H ??NEUTROPHILS?%,?AUTO?(%) 71 71 ??LYMPH?%,?AUTO?(%) 16 16 ??NEUTROPHILS,?AUTO?(Thou/mm3) 8.6?H 7.1 ??GLUCOSE,RANDOM?(mg/dL) 114?H ? ??BLOOD?UREA?NITROGEN?(mg/dL) 15 ? ??CREATININE?(mg/dL) 1.30 ? ??SODIUM?(mmol/L) 138 ? ??POTASSIUM?(mmol/L) 3.6 ? ??CHLORIDE?(mmol/L) 105 ? ??CrCl?(CandG)?(ml/min) 95.75 ? ??CALCIUM,?SERUM?(mg/dL) 9.9 ? ASSESSMENT/PLAN: Assessment and Plan: Nguyen Peressse, male patient with testicular cancer, presenting with pain and a left supraclavicular mass. Testicular Cancer Assessment: Patient diagnosed with testicular cancer, status post right radical orchiectomy on September 13, 2024. 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 Pre-orchiectomy labs showed elevated tumor markers: beta HCG 119.1, AFP 11.4, LDH 390.7. CT scan of chest negative for metastasis, but patient has a left supraclavicular mass, likely metastatic. Based on these findings, patient is assessed to have stage 3C testicular cancer. Testicular Cancer (Non-seminoma) Patient diagnosed with non-seminoma testicular cancer. CT scan shows necrotic pericaval lymphadenopathy extending into the mesentery and a 6 mm nodule in the middle lobe. Supraclavicular lymph node involvement noted. Tumor markers are elevated, indicating cancer in the blood. Treatment has been delayed, and the patient has not yet started chemotherapy. The cancer is described as easily treatable, but prompt initiation of treatment is crucial. Plan: - Initiate chemotherapy regimen: - Bleomycin, Etoposide, Cisplatin (BEP) protocol - 4 cycles, each cycle lasting 21 days - Days 1-5: Etoposide and Cisplatin - Days 1, 8, 15: Bleomycin - Schedule first chemotherapy session for the upcoming Thursday - Obtain brain MRI (already authorized) - Refer to tertiary care center ([place]) for second opinion and potential future interventions. already authorized - Monitor tumor markers and LDH levels - Perform post-treatment imaging to assess response after 4 cycles - Educate patient on chemotherapy side effects and importance of hydration - Encourage daily walks and maintaining personal hygiene - Schedule follow-up appointments during non-chemotherapy weeks Bilateral Lower Extremity Pain Assessment: Patient reports pain in both legs. Given the recent cancer diagnosis and prolonged inactivity since June 13, there is concern for potential deep vein thrombosis. Plan: - Order bilateral lower extremity ultrasound to evaluate for blood clots and is negative - Encourage regular walking and exercise as tolerated Right Testicular Swelling Assessment: Patient reports increasing swelling in the right testicle. On examination, a hydrocele is suspected rather than cancer recurrence in the remaining testicle. Additionally, a small hernia is noted. Plan: - Monitor right scrotum for changes and follow with urology - Reassess hernia during follow-up visits Depression Assessment: Patient exhibits signs of depression, including decreased activity and self-care. This may be related to his cancer diagnosis and treatment delay. Plan: - Encourage increased physical activity, including daily walks - Promote self-care activities, such as regular showers - Monitor mood during treatment course RETURN TO CLINIC: BILLING AND COMPLIANCE: I reviewed external records from providers outside my specialty as summarized above. I spent a total of 50 minutes on this patient?s care on the day of their visit excluding time spent related to any billed procedures. This time includes time spent with the patient as well as time spent documenting in the medical record, reviewing patients records and tests, obtaining history, placing orders, communicating with other healthcare professionals, counseling the patient, family or caregiver, and/or care coordination for the diagnoses above. Electronically Signed by: Brooks Cates MD T: 2:56 PM CC: PCP: Referring: William Vegas This document was completed utilizing speech recognition software. Grammatical errors, random word insertions, pronoun errors, and incomplete sentences are an occasional consequence of this system due to software limitations, ambient noise, and hardware issues. Any formal questions or concerns about the content, text or information contained within the body of this dictation should be directly addressed to the provider for clarification.
[2024-10-28 11:46] LABS: Basophils % (Auto) 0 % (0-2.5); Eosinophils # (Auto) 0.1 Thou/mm3 (0.0-0.5); Eosinophils % (Auto) 1 % (0-10); Hematocrit 31.8 % (41.0-53.0); Hemoglobin 10.5 g/dL (13.5-16.0); Immature Granulocytes % (Auto) 1 % (0-0); Immature Granulocytes Auto 0.05 Thou/mm3 (0.00-0.00); Lymphocytes # (Auto) 1.2 Thou/mm3 (1.0-4.8); Lymphocytes % (Auto) 13 % (10-50); Mean Corpuscular Hemoglobin 27.7 pg (25.0-35.0); Mean Corpuscular Volume 84 fL (80-100); Monocytes # (Auto) 0.7 Thou/mm3 (0.0-0.8); Monocytes % (Auto) 7 % (0-12); Neutrophils # (Auto) 7.2 Thou/mm3 (1.8-7.7); Neutrophils % (Auto) 78 % (37-80); Nucleated Red Blood Cell % 0 /100 WBC (0); Platelet Count 401 Thou/mm3 (140-440); RDW Standard Deviation 47.8 fL (35.1-43.9); Red Blood Count 3.79 Miln/mm3 (4.50-5.90); White Blood Count 9.3 Thou/mm3 (3.8-10.6)
[2024-10-28 12:01] LABS: Alanine Aminotransferase 23 U/L (10-49); Albumin, Serum 4.1 gm/dL (3.5-5.0); Albumin/Globulin Ratio 1.5 (1.2-2.2); Alkaline Phosphatase 167 U/L (46-116); Anion Gap 10 (7-16); Aspartate Amino Transferase 17 U/L (0-34); BUN/Creatinine Ratio 11 Ratio (12-20); Bilirubin,Total 0.5 mg/dL (0.3-1.2); Blood Urea Nitrogen 9 mg/dL (9-23); Calcium 8.6 mg/dL (8.3-10.6); Calcium (Corrected) 8.6 mg/dL (8.5-10.1); Carbon Dioxide 27.2 mMol/L (20.0-31.0); Chloride 104 mMol/L (98-107); Creatinine (Component) 0.8 mg/dL (0.6-1.3); Globulin 2.7 gm/dL (2.3-3.5); Glucose 167 mg/dL (74-106); LDH (Lactate Dehydrogenase) 552 U/L (120-246); Magnesium 1.9 mg/dL (1.6-2.6); Osmolality,Calculated 283 (275-295); Potassium 3.6 mMol/L (3.4-5.1); Sodium 141 mMol/L (136-145); Total Protein 6.8 gm/dL (5.7-8.2); eGFR > 60 See Note
[2024-11-01 06:39] LABS: HCG Total,Male (Tumor Marker)* 2373 mIU/mL (<5)
[2024-11-07 08:43] LABS: Basophils % (Auto) 1 % (0-2.5); Eosinophils # (Auto) 0.3 Thou/mm3 (0.0-0.5); Eosinophils % (Auto) 4 % (0-10); Hematocrit 37.8 % (41.0-53.0); Hemoglobin 12.4 g/dL (13.5-16.0); Immature Granulocytes % (Auto) 1 % (0-0); Immature Granulocytes Auto 0.05 Thou/mm3 (0.00-0.00); Lymphocytes # (Auto) 1.3 Thou/mm3 (1.0-4.8); Lymphocytes % (Auto) 20 % (10-50); Mean Corpuscular HGB Conc 32.8 g/dl (31.0-37.0); Mean Corpuscular Hemoglobin 27.6 pg (25.0-35.0); Mean Corpuscular Volume 84 fL (80-100); Monocytes % (Auto) 0 % (0-12); Neutrophils % (Auto) 75 % (37-80); Nucleated Red Blood Cell % 0 /100 WBC (0); Platelet Count 385 Thou/mm3 (140-440); RDW Standard Deviation 46.7 fL (35.1-43.9); Red Blood Count 4.49 Miln/mm3 (4.50-5.90); White Blood Count 6.7 Thou/mm3 (3.8-10.6)
[2024-11-07 09:02] LABS: Magnesium 1.9 mg/dL (1.6-2.6)
[2024-11-07 09:11] LABS: Alanine Aminotransferase 70 U/L (10-49); Albumin, Serum 4.6 gm/dL (3.5-5.0); Albumin/Globulin Ratio 1.7 (1.2-2.2); Alkaline Phosphatase 132 U/L (46-116); Anion Gap 7 (7-16); Aspartate Amino Transferase 27 U/L (0-34); BUN/Creatinine Ratio 16 Ratio (12-20); Beta HCG,Quantitative 4428 mIU/mL; Bilirubin,Total 0.5 mg/dL (0.3-1.2); Blood Urea Nitrogen 14 mg/dL (9-23); Calcium 9.3 mg/dL (8.3-10.6); Calcium (Corrected) 9.3 mg/dL (8.5-10.1); Carbon Dioxide 27.1 mMol/L (20.0-31.0); Chloride 99 mMol/L (98-107); Creatinine (Component) 0.9 mg/dL (0.6-1.3); Globulin 2.7 gm/dL (2.3-3.5); Glucose 118 mg/dL (74-106); LDH (Lactate Dehydrogenase) 306 U/L (120-246); Osmolality,Calculated 267 (275-295); Potassium 3.9 mMol/L (3.4-5.1); Sodium 133 mMol/L (136-145); Total Protein 7.3 gm/dL (5.7-8.2); eGFR > 60 See Note
[2024-11-14 14:42] LABS: Basophils % (Auto) 1 % (0-2.5); Eosinophils # (Auto) 0.1 Thou/mm3 (0.0-0.5); Eosinophils % (Auto) 5 % (0-10); Hematocrit 30.7 % (41.0-53.0); Hemoglobin 10.1 g/dL (13.5-16.0); Immature Granulocytes % (Auto) 0 % (0-0); Lymphocytes # (Auto) 0.9 Thou/mm3 (1.0-4.8); Lymphocytes % (Auto) 45 % (10-50); Mean Corpuscular HGB Conc 32.9 g/dl (31.0-37.0); Mean Corpuscular Hemoglobin 27.6 pg (25.0-35.0); Mean Corpuscular Volume 84 fL (80-100); Monocytes # (Auto) 0.1 Thou/mm3 (0.0-0.8); Monocytes % (Auto) 6 % (0-12); Neutrophils # (Auto) 0.8 Thou/mm3 (1.8-7.7); Neutrophils % (Auto) 43 % (37-80); Nucleated Red Blood Cell % 0 /100 WBC (0); Platelet Count 92 Thou/mm3 (140-440); RDW Standard Deviation 46.1 fL (35.1-43.9); Red Blood Count 3.66 Miln/mm3 (4.50-5.90)
[2024-11-14 14:49] LABS: White Blood Count 1.9 Thou/mm3 (3.8-10.6)
[2024-11-14 15:10] LABS: Alanine Aminotransferase 30 U/L (10-49); Albumin, Serum 4.1 gm/dL (3.5-5.0); Albumin/Globulin Ratio 1.8 (1.2-2.2); Alkaline Phosphatase 125 U/L (46-116); Anion Gap 10 (7-16); Aspartate Amino Transferase 15 U/L (0-34); BUN/Creatinine Ratio 9 Ratio (12-20); Bilirubin,Total 0.3 mg/dL (0.3-1.2); Blood Urea Nitrogen 6 mg/dL (9-23); Calcium 9.1 mg/dL (8.3-10.6); Calcium (Corrected) 9.1 mg/dL (8.5-10.1); Carbon Dioxide 27.9 mMol/L (20.0-31.0); Chloride 102 mMol/L (98-107); Creatinine (Component) 0.7 mg/dL (0.6-1.3); Globulin 2.3 gm/dL (2.3-3.5); Glucose 134 mg/dL (74-106); Osmolality,Calculated 279 (275-295); Potassium 3.3 mMol/L (3.4-5.1); Sodium 140 mMol/L (136-145); Total Protein 6.4 gm/dL (5.7-8.2); eGFR > 60 See Note
[2024-11-14 17:31] LABS: Path Review Blood Smear Sent to Pathologist
[2024-11-18 06:44] LABS: HCG Total,Male (Tumor Marker)* 188 mIU/mL (<5)
[2024-11-21 07:55] LABS: Basophils % (Auto) 1 % (0-2.5); Eosinophils # (Auto) 0.2 Thou/mm3 (0.0-0.5); Eosinophils % (Auto) 3 % (0-10); Hematocrit 32.9 % (41.0-53.0); Immature Granulocytes % (Auto) 6 % (0-0); Immature Granulocytes Auto 0.34 Thou/mm3 (0.00-0.00); Lymphocytes # (Auto) 1.8 Thou/mm3 (1.0-4.8); Lymphocytes % (Auto) 32 % (10-50); Mean Corpuscular HGB Conc 33.4 g/dl (31.0-37.0); Mean Corpuscular Hemoglobin 28.7 pg (25.0-35.0); Mean Corpuscular Volume 86 fL (80-100); Monocytes # (Auto) 0.8 Thou/mm3 (0.0-0.8); Monocytes % (Auto) 14 % (0-12); Neutrophils # (Auto) 2.5 Thou/mm3 (1.8-7.7); Neutrophils % (Auto) 45 % (37-80); Nucleated Red Blood Cell # 0.04 Thou/mm3 (0.00-0.00); Nucleated Red Blood Cell % 1 /100 WBC (0); Platelet Count 289 Thou/mm3 (140-440); RDW Standard Deviation 48.5 fL (35.1-43.9); Red Blood Count 3.83 Miln/mm3 (4.50-5.90); White Blood Count 5.7 Thou/mm3 (3.8-10.6)
[2024-11-21 08:20] LABS: Alanine Aminotransferase 31 U/L (10-49); Albumin, Serum 4.1 gm/dL (3.5-5.0); Albumin/Globulin Ratio 1.5 (1.2-2.2); Alkaline Phosphatase 125 U/L (46-116); Anion Gap 6 (7-16); Aspartate Amino Transferase 16 U/L (0-34); BUN/Creatinine Ratio 8 Ratio (12-20); Bilirubin,Total 0.2 mg/dL (0.3-1.2); Blood Urea Nitrogen 6 mg/dL (9-23); Calcium 8.9 mg/dL (8.3-10.6); Calcium (Corrected) 8.9 mg/dL (8.5-10.1); Carbon Dioxide 26.8 mMol/L (20.0-31.0); Chloride 107 mMol/L (98-107); Creatinine (Component) 0.8 mg/dL (0.6-1.3); Globulin 2.7 gm/dL (2.3-3.5); Glucose 130 mg/dL (74-106); LDH (Lactate Dehydrogenase) 182 U/L (120-246); Magnesium 1.7 mg/dL (1.6-2.6); Osmolality,Calculated 279 (275-295); Potassium 3.4 mMol/L (3.4-5.1); Sodium 140 mMol/L (136-145); Total Protein 6.8 gm/dL (5.7-8.2); eGFR > 60 See Note
[2024-11-24 06:27] LABS: HCG Total,Male (Tumor Marker)* 19 mIU/mL (<5)
== END 2024-11-21 23:59 | disposition home or self-care (01) ==
LOC: SCTC 07:06
PROVIDERS: PCP Family Medicine; Referring Provider Family Medicine; Visit Provider Internal Medicine Hematology & Oncology
DX: Z51.11 Encounter for antineoplastic chemotherapy (principal); C62.11 Malignant neoplasm of descended right testis; F32.A Depression, unspecified; G47.9 Sleep disorder, unspecified; Z90.79 Acquired absence of other genital organ(s); M79.605 Pain in left leg; M79.604 Pain in right leg; N50.89 Other specified disorders of the male genital organs; K40.90 Unilateral inguinal hernia, without obstruction or gangrene, not specified as recurrent
CPT/HCPCS: 36415; 36591; 80053; 82105; 83615; 83735; 84702; 85025; 96367; 96368; 96375; 96409; 96411; 96413; 96417; 99212; 99424; 99425; A4216; J1100; J1200; J1453; J1642; J1938; J2150; J2405; J3475; J3480; J7030; J7040; J7050; J9040; J9060; J9181; A9270; G0463; J1940

== ENCOUNTER → 2024-11-21 | Outpatient (CLI) | payer MEDICAID, SELFPAY ==
--- NOTE | 2024-11-21 09:04 | XR_ITS ---
Examination: PA lateral chest 2 views TECHNIQUE: Upright PA lateral chest 2 views Exam date and time: November 21, 2024 0913 hours INDICATIONS: Diagnosis malignant neoplasm testis, chest pain radiating to the left side today FINDINGS: Right internal jugular Port-A-Cath tip right atrium Normal heart size Lungs are clear The osseous structures are intact IMPRESSION: No active disease
== END | disposition home or self-care (01) ==
LOC: CDIM 08:54
PROVIDERS: Referring Provider Internal Medicine Hematology & Oncology; Visit Provider Internal Medicine Hematology & Oncology
DX: C62.11 Malignant neoplasm of descended right testis (principal)
CPT/HCPCS: 71046

== ENCOUNTER → 2024-12-05 | Outpatient (CLI) | payer MEDICAID, SELFPAY ==
--- NOTE | 2024-12-05 10:12 | XR_ITS ---
Examination: PA lateral chest 2 views TECHNIQUE: Upright PA lateral chest 2 views Date and time: December 05, 2024 1021 hours Comparison November 21, 2024 INDICATIONS: Diagnosis malignant neoplasm right testis FINDINGS: Normal heart size. No pneumonia or pulmonary edema. No pulmonary nodules identified. Right internal jugular Port-A-Cath tip satisfactory position IMPRESSION: No active disease
== END | disposition home or self-care (01) ==
PROVIDERS: PCP Physician Assistant Medical; Referring Provider Internal Medicine Hematology & Oncology; Visit Provider Internal Medicine Hematology & Oncology
DX: C62.11 Malignant neoplasm of descended right testis (principal)
CPT/HCPCS: 71046

== ENCOUNTER → 2024-12-12 | Outpatient (CLI) | payer MEDICAID, SELFPAY ==
--- NOTE | 2024-12-12 16:30 | XR_ITS ---
Examination: MRI of brain without intravenous contrast. MRI brain with intravenous contrast. Date and time of exam:December 12, 2024, 1738 hours INDICATIONS: Blurred vision earaches beginning 3 months ago, diagnosis malignant neoplasm right testis Technique: Multiple axial and sagittal images of the brain to been obtained. Siemens high-resolution 1.52 Angela short bore scanner utilized. Sagittal sections, T1 weighted images, TR 500, TE 14, are performed. Axial sections proton-density and T2-weighted images have been obtained. Inversion recovery axial images, TR 9260, TE 111, TR 2500. Diffusion weighted images, axial sections, TR 4800, TE 128, B value 1000. Axial sections, ADC map, TR 4800, TE 128. Axial and coronal images were also obtained post 20 cc gadolinium administered intravenously. Findings:: Enlargement of the sella turcica is not present. The optic chiasm and infundibular stalk are not remarkable. There is no localized enlargement of the medulla or tova. Fourth ventricle and cerebellar tonsils appear normal in position. No subacute area of hemorrhage density is seen. Fourth ventricle is midline. Mass in the cerebellopontine angle region is not evident. 7th and 8th nerve complexes exhibit symmetry Globes are symmetrical Orbital musculature including medial lateral rectus muscles do not exhibit abnormality Increased white matter signal is not seen 10 mm probable sebaceous cyst in the left frontal scalp Effacement of the cortical sulcal markings is not identified. Mass effect upon the ventricular system is not identified. Diffusion-weighted images demonstrate no focus of restricted diffusions Mild ethmoid sinusitis Mild bilateral mastoiditis Contrast images demonstrate no abnormal enhancing cerebellar or cerebral lesions Impression: Negative for acute hemorrhage mass effect or midline shift No acute infarct No MR findings diagnostic for demyelinating disease Mild bilateral mastoiditis Mild chronic ethmoid sinusitis No abnormal enhancing cerebellar or cerebral lesions
== END | disposition home or self-care (01) ==
PROVIDERS: PCP Family Medicine; Referring Provider Internal Medicine Hematology & Oncology; Visit Provider Internal Medicine Hematology & Oncology
DX: J32.2 Chronic ethmoidal sinusitis (principal); H70.93 Unspecified mastoiditis, bilateral
CPT/HCPCS: 70553; A9579

== ENCOUNTER → 2024-12-16 | Outpatient (CLI) | payer MEDICAID, SELFPAY ==
--- NOTE | 2024-12-16 10:20 | XR_ITS ---
Examination: PA lateral chest 2 views TECHNIQUE: Upright PA lateral chest 2 views Date and time: December 16, 2024 1047 hours INDICATIONS: Diagnosis testicular cancer post surgery September 2024 FINDINGS: Normal heart size Right internal jugular Port-A-Cath tip satisfactory position. No pneumonia or pulmonary edema or pulmonary masses IMPRESSION: No pneumonia pulmonary edema or pulmonary masses
== END | disposition home or self-care (01) ==
PROVIDERS: PCP Physician Assistant Medical; Referring Provider Internal Medicine Hematology & Oncology; Visit Provider Internal Medicine Hematology & Oncology
DX: C62.11 Malignant neoplasm of descended right testis (principal)
CPT/HCPCS: 71046

== ENCOUNTER 2024-12-22 07:03 | Outpatient (RCR) | payer MEDICAID, SELFPAY ==
[2024-11-28 07:56] LABS: Basophils # (Auto) 0.1 Thou/mm3 (0.0-0.2); Basophils % (Auto) 1 % (0-2.5); Eosinophils # (Auto) 0.1 Thou/mm3 (0.0-0.5); Eosinophils % (Auto) 1 % (0-10); Hematocrit 36.2 % (41.0-53.0); Hemoglobin 11.8 g/dL (13.5-16.0); Immature Granulocytes Auto 0.48 Thou/mm3 (0.00-0.00); Lymphocytes # (Auto) 2.1 Thou/mm3 (1.0-4.8); Lymphocytes % (Auto) 19 % (10-50); Mean Corpuscular HGB Conc 32.6 g/dl (31.0-37.0); Mean Corpuscular Hemoglobin 28.4 pg (25.0-35.0); Mean Corpuscular Volume 87 fL (80-100); Monocytes # (Auto) 1.1 Thou/mm3 (0.0-0.8); Monocytes % (Auto) 10 % (0-12); Neutrophils # (Auto) 7.3 Thou/mm3 (1.8-7.7); Neutrophils % (Auto) 66 % (37-80); Nucleated Red Blood Cell # 0.00 Thou/mm3 (0.00-0.00); Nucleated Red Blood Cell % 0 /100 WBC (0); Platelet Count 495 Thou/mm3 (140-440); RDW Standard Deviation 62.2 fL (35.1-43.9); Red Blood Count 4.16 Miln/mm3 (4.50-5.90); White Blood Count 11.1 Thou/mm3 (3.8-10.6)
[2024-11-28 08:09] LABS: Magnesium 1.8 mg/dL (1.6-2.6)
[2024-11-28 08:11] LABS: Alanine Aminotransferase 24 U/L (10-49); Albumin, Serum 4.4 gm/dL (3.5-5.0); Albumin/Globulin Ratio 1.5 (1.2-2.2); Alkaline Phosphatase 138 U/L (46-116); Anion Gap 8 (7-16); Aspartate Amino Transferase 16 U/L (0-34); BUN/Creatinine Ratio 14 Ratio (12-20); Bilirubin,Total 0.2 mg/dL (0.3-1.2); Blood Urea Nitrogen 13 mg/dL (9-23); Calcium 9.5 mg/dL (8.3-10.6); Calcium (Corrected) 9.5 mg/dL (8.5-10.1); Carbon Dioxide 27.7 mMol/L (20.0-31.0); Chloride 105 mMol/L (98-107); Creatinine (Component) 0.9 mg/dL (0.6-1.3); Globulin 2.9 gm/dL (2.3-3.5); Glucose 108 mg/dL (74-106); LDH (Lactate Dehydrogenase) 229 U/L (120-246); Osmolality,Calculated 282 (275-295); Potassium 4.3 mMol/L (3.4-5.1); Sodium 141 mMol/L (136-145); Total Protein 7.3 gm/dL (5.7-8.2); eGFR > 60 See Note
[2024-11-28 08:21] LABS: AFP Non-Pregnant 3.40 ng/mL (<8.10)
[2024-12-01 06:31] LABS: HCG Total,Male (Tumor Marker)* <5 mIU/mL (<5)
[2024-12-05 10:46] LABS: Basophils # (Auto) 0.0 Thou/mm3 (0.0-0.2); Basophils % (Auto) 1 % (0-2.5); Eosinophils # (Auto) 0.3 Thou/mm3 (0.0-0.5); Eosinophils % (Auto) 3 % (0-10); Hematocrit 37.4 % (41.0-53.0); Hemoglobin 12.8 g/dL (13.5-16.0); Immature Granulocytes Auto 0.05 Thou/mm3 (0.00-0.00); Lymphocytes # (Auto) 1.2 Thou/mm3 (1.0-4.8); Lymphocytes % (Auto) 16 % (10-50); Mean Corpuscular HGB Conc 34.2 g/dl (31.0-37.0); Mean Corpuscular Hemoglobin 29.0 pg (25.0-35.0); Mean Corpuscular Volume 85 fL (80-100); Monocytes # (Auto) 0.1 Thou/mm3 (0.0-0.8); Monocytes % (Auto) 1 % (0-12); Neutrophils # (Auto) 5.8 Thou/mm3 (1.8-7.7); Neutrophils % (Auto) 79 % (37-80); Nucleated Red Blood Cell # 0.00 Thou/mm3 (0.00-0.00); Nucleated Red Blood Cell % 0 /100 WBC (0); Platelet Count 254 Thou/mm3 (140-440); RDW Standard Deviation 61.0 fL (35.1-43.9); Red Blood Count 4.41 Miln/mm3 (4.50-5.90); White Blood Count 7.4 Thou/mm3 (3.8-10.6)
[2024-12-05 10:54] LABS: Alanine Aminotransferase 38 U/L (10-49); Albumin, Serum 4.6 gm/dL (3.5-5.0); Albumin/Globulin Ratio 1.6 (1.2-2.2); Alkaline Phosphatase 114 U/L (46-116); Anion Gap 11 (7-16); Aspartate Amino Transferase 24 U/L (0-34); BUN/Creatinine Ratio 17 Ratio (12-20); Bilirubin,Total 0.8 mg/dL (0.3-1.2); Blood Urea Nitrogen 15 mg/dL (9-23); Calcium 9.6 mg/dL (8.3-10.6); Calcium (Corrected) 9.6 mg/dL (8.5-10.1); Carbon Dioxide 29.0 mMol/L (20.0-31.0); Chloride 95 mMol/L (98-107); Creatinine (Component) 0.9 mg/dL (0.6-1.3); Globulin 2.9 gm/dL (2.3-3.5); Glucose 153 mg/dL (74-106); Osmolality,Calculated 273 (275-295); Potassium 3.8 mMol/L (3.4-5.1); Sodium 135 mMol/L (136-145); Total Protein 7.5 gm/dL (5.7-8.2); eGFR > 60 See Note
[2024-12-12 12:32] LABS: Basophils # (Auto) 0.0 Thou/mm3 (0.0-0.2); Basophils % (Auto) 1 % (0-2.5); Eosinophils # (Auto) 0.1 Thou/mm3 (0.0-0.5); Eosinophils % (Auto) 4 % (0-10); Hematocrit 28.8 % (41.0-53.0); Hemoglobin 9.4 g/dL (13.5-16.0); Immature Granulocytes Auto 0.00 Thou/mm3 (0.00-0.00); Lymphocytes # (Auto) 0.9 Thou/mm3 (1.0-4.8); Lymphocytes % (Auto) 42 % (10-50); Mean Corpuscular HGB Conc 32.6 g/dl (31.0-37.0); Mean Corpuscular Hemoglobin 29.3 pg (25.0-35.0); Mean Corpuscular Volume 90 fL (80-100); Monocytes # (Auto) 0.1 Thou/mm3 (0.0-0.8); Monocytes % (Auto) 6 % (0-12); Neutrophils # (Auto) 1.0 Thou/mm3 (1.8-7.7); Neutrophils % (Auto) 47 % (37-80); Nucleated Red Blood Cell # 0.00 Thou/mm3 (0.00-0.00); Nucleated Red Blood Cell % 0 /100 WBC (0); RDW Standard Deviation 65.4 fL (35.1-43.9); Red Blood Count 3.21 Miln/mm3 (4.50-5.90)
[2024-12-12 12:45] LABS: Platelet Count 73 Thou/mm3 (140-440); White Blood Count 2.2 Thou/mm3 (3.8-10.6)
[2024-12-12 12:48] LABS: Alanine Aminotransferase 14 U/L (10-49); Albumin, Serum 3.9 gm/dL (3.5-5.0); Albumin/Globulin Ratio 1.7 (1.2-2.2); Alkaline Phosphatase 93 U/L (46-116); Anion Gap 7 (7-16); Aspartate Amino Transferase 11 U/L (0-34); BUN/Creatinine Ratio 10 Ratio (12-20); Bilirubin,Total 0.2 mg/dL (0.3-1.2); Blood Urea Nitrogen 8 mg/dL (9-23); Calcium 8.9 mg/dL (8.3-10.6); Calcium (Corrected) 9.0 mg/dL (8.5-10.1); Carbon Dioxide 26.8 mMol/L (20.0-31.0); Chloride 106 mMol/L (98-107); Creatinine (Component) 0.8 mg/dL (0.6-1.3); Globulin 2.3 gm/dL (2.3-3.5); Glucose 118 mg/dL (74-106); Osmolality,Calculated 278 (275-295); Potassium 3.8 mMol/L (3.4-5.1); Sodium 140 mMol/L (136-145); Total Protein 6.2 gm/dL (5.7-8.2); eGFR > 60 See Note
[2024-12-12 14:00] LABS: Slide Review Platelets confirmed
[2024-12-16 10:14] LABS: Basophils # (Auto) 0.0 Thou/mm3 (0.0-0.2); Basophils % (Auto) 1 % (0-2.5); Eosinophils # (Auto) 0.1 Thou/mm3 (0.0-0.5); Eosinophils % (Auto) 5 % (0-10); Hematocrit 31.9 % (41.0-53.0); Hemoglobin 10.3 g/dL (13.5-16.0); Immature Granulocytes Auto 0.03 Thou/mm3 (0.00-0.00); Lymphocytes # (Auto) 1.1 Thou/mm3 (1.0-4.8); Lymphocytes % (Auto) 61 % (10-50); Mean Corpuscular HGB Conc 32.3 g/dl (31.0-37.0); Mean Corpuscular Hemoglobin 29.4 pg (25.0-35.0); Mean Corpuscular Volume 91 fL (80-100); Monocytes # (Auto) 0.4 Thou/mm3 (0.0-0.8); Monocytes % (Auto) 20 % (0-12); Neutrophils # (Auto) 0.2 Thou/mm3 (1.8-7.7); Neutrophils % (Auto) 11 % (37-80); Nucleated Red Blood Cell # 0.02 Thou/mm3 (0.00-0.00); Nucleated Red Blood Cell % 1 /100 WBC (0); Platelet Count 270 Thou/mm3 (140-440); RDW Standard Deviation 74.3 fL (35.1-43.9); Red Blood Count 3.50 Miln/mm3 (4.50-5.90)
[2024-12-16 10:18] LABS: White Blood Count 1.9 Thou/mm3 (3.8-10.6)
[2024-12-16 10:35] LABS: AFP Non-Pregnant 4.40 ng/mL (<8.10)
[2024-12-16 10:37] LABS: Magnesium 1.3 mg/dL (1.6-2.6)
[2024-12-16 10:41] LABS: Alanine Aminotransferase 21 U/L (10-49); Albumin, Serum 3.9 gm/dL (3.5-5.0); Albumin/Globulin Ratio 1.7 (1.2-2.2); Alkaline Phosphatase 93 U/L (46-116); Anion Gap 8 (7-16); Aspartate Amino Transferase 17 U/L (0-34); BUN/Creatinine Ratio 11 Ratio (12-20); Bilirubin,Total 0.2 mg/dL (0.3-1.2); Blood Urea Nitrogen 9 mg/dL (9-23); Calcium 8.8 mg/dL (8.3-10.6); Calcium (Corrected) 8.9 mg/dL (8.5-10.1); Carbon Dioxide 27.5 mMol/L (20.0-31.0); Chloride 107 mMol/L (98-107); Creatinine (Component) 0.8 mg/dL (0.6-1.3); Globulin 2.3 gm/dL (2.3-3.5); Glucose 147 mg/dL (74-106); LDH (Lactate Dehydrogenase) 171 U/L (120-246); Osmolality,Calculated 284 (275-295); Potassium 3.5 mMol/L (3.4-5.1); Sodium 142 mMol/L (136-145); Total Protein 6.2 gm/dL (5.7-8.2); eGFR > 60 See Note
[2024-12-19 07:44] LABS: Basophils # (Auto) 0.0 Thou/mm3 (0.0-0.2); Basophils % (Auto) 1 % (0-2.5); Eosinophils # (Auto) 0.1 Thou/mm3 (0.0-0.5); Eosinophils % (Auto) 3 % (0-10); Hematocrit 33.8 % (41.0-53.0); Hemoglobin 11.0 g/dL (13.5-16.0); Immature Granulocytes Auto 0.37 Thou/mm3 (0.00-0.00); Lymphocytes # (Auto) 1.1 Thou/mm3 (1.0-4.8); Lymphocytes % (Auto) 28 % (10-50); Mean Corpuscular HGB Conc 32.5 g/dl (31.0-37.0); Mean Corpuscular Hemoglobin 29.4 pg (25.0-35.0); Mean Corpuscular Volume 90 fL (80-100); Monocytes # (Auto) 1.1 Thou/mm3 (0.0-0.8); Monocytes % (Auto) 28 % (0-12); Neutrophils # (Auto) 1.2 Thou/mm3 (1.8-7.7); Neutrophils % (Auto) 30 % (37-80); Nucleated Red Blood Cell # 0.07 Thou/mm3 (0.00-0.00); Nucleated Red Blood Cell % 2 /100 WBC (0); Platelet Count 482 Thou/mm3 (140-440); RDW Standard Deviation 74.4 fL (35.1-43.9); Red Blood Count 3.74 Miln/mm3 (4.50-5.90); White Blood Count 4.0 Thou/mm3 (3.8-10.6)
[2024-12-19 07:53] LABS: Magnesium 1.3 mg/dL (1.6-2.6)
[2024-12-20 06:48] LABS: HCG Total,Male (Tumor Marker)* <5 mIU/mL (<5)
[2024-12-20 07:59] LABS: Magnesium 1.7 mg/dL (1.6-2.6)
== END 2024-12-22 23:59 | disposition home or self-care (01) ==
LOC: SCTC 07:03
PROVIDERS: PCP Physician Assistant Medical; Referring Provider Internal Medicine Hematology & Oncology; Visit Provider Internal Medicine Hematology & Oncology
DX: Z51.11 Encounter for antineoplastic chemotherapy (principal); C62.11 Malignant neoplasm of descended right testis; Z90.79 Acquired absence of other genital organ(s); R22.1 Localized swelling, mass and lump, neck; M79.605 Pain in left leg; M79.604 Pain in right leg; N50.89 Other specified disorders of the male genital organs; F32.A Depression, unspecified
CPT/HCPCS: 36591; 80053; 82105; 83615; 83735; 84702; 85025; 96366; 96367; 96368; 96375; 96409; 96411; 96413; 96417; A4216; J1100; J1200; J1453; J1642; J1938; J2150; J2405; J3475; J3480; J7030; J7040; J7050; J9040; J9060; J9181; A9270

== ENCOUNTER 2025-01-04 10:15 | Outpatient (RCR) | payer MEDICAID, SELFPAY ==
[2024-12-26 08:43] LABS: Basophils # (Auto) 0.0 Thou/mm3 (0.0-0.2); Basophils % (Auto) 1 % (0-2.5); Eosinophils # (Auto) 0.0 Thou/mm3 (0.0-0.5); Eosinophils % (Auto) 0 % (0-10); Hematocrit 36.6 % (41.0-53.0); Hemoglobin 12.0 g/dL (13.5-16.0); Immature Granulocytes Auto 0.09 Thou/mm3 (0.00-0.00); Lymphocytes # (Auto) 0.7 Thou/mm3 (1.0-4.8); Lymphocytes % (Auto) 14 % (10-50); Mean Corpuscular HGB Conc 32.8 g/dl (31.0-37.0); Mean Corpuscular Hemoglobin 28.8 pg (25.0-35.0); Mean Corpuscular Volume 88 fL (80-100); Monocytes # (Auto) 0.1 Thou/mm3 (0.0-0.8); Monocytes % (Auto) 1 % (0-12); Neutrophils # (Auto) 3.9 Thou/mm3 (1.8-7.7); Neutrophils % (Auto) 82 % (37-80); Nucleated Red Blood Cell # 0.00 Thou/mm3 (0.00-0.00); Nucleated Red Blood Cell % 0 /100 WBC (0); Platelet Count 313 Thou/mm3 (140-440); RDW Standard Deviation 70.6 fL (35.1-43.9); Red Blood Count 4.16 Miln/mm3 (4.50-5.90); White Blood Count 4.7 Thou/mm3 (3.8-10.6)
[2024-12-26 08:58] LABS: LDH (Lactate Dehydrogenase) 185 U/L (120-246); Magnesium 1.4 mg/dL (1.6-2.6)
[2024-12-26 08:59] LABS: AFP Non-Pregnant 4.70 ng/mL (<8.10)
[2024-12-26 09:01] LABS: Alanine Aminotransferase 28 U/L (10-49); Albumin, Serum 4.9 gm/dL (3.5-5.0); Albumin/Globulin Ratio 2.0 (1.2-2.2); Alkaline Phosphatase 100 U/L (46-116); Anion Gap 10 (7-16); Aspartate Amino Transferase 19 U/L (0-34); BUN/Creatinine Ratio 20 Ratio (12-20); Bilirubin,Total 0.5 mg/dL (0.3-1.2); Blood Urea Nitrogen 18 mg/dL (9-23); Calcium 9.8 mg/dL (8.3-10.6); Calcium (Corrected) 9.8 mg/dL (8.5-10.1); Carbon Dioxide 28.5 mMol/L (20.0-31.0); Chloride 95 mMol/L (98-107); Creatinine (Component) 0.9 mg/dL (0.6-1.3); Globulin 2.4 gm/dL (2.3-3.5); Glucose 121 mg/dL (74-106); Osmolality,Calculated 269 (275-295); Potassium 3.9 mMol/L (3.4-5.1); Sodium 133 mMol/L (136-145); Total Protein 7.3 gm/dL (5.7-8.2); eGFR > 60 See Note
[2025-01-02 11:36] LABS: Basophils # (Auto) 0.0 Thou/mm3 (0.0-0.2); Basophils % (Auto) 1 % (0-2.5); Eosinophils # (Auto) 0.0 Thou/mm3 (0.0-0.5); Eosinophils % (Auto) 1 % (0-10); Hematocrit 29.5 % (41.0-53.0); Hemoglobin 9.6 g/dL (13.5-16.0); Immature Granulocytes Auto 0.00 Thou/mm3 (0.00-0.00); Lymphocytes # (Auto) 0.9 Thou/mm3 (1.0-4.8); Lymphocytes % (Auto) 45 % (10-50); Mean Corpuscular HGB Conc 32.5 g/dl (31.0-37.0); Mean Corpuscular Hemoglobin 29.0 pg (25.0-35.0); Mean Corpuscular Volume 89 fL (80-100); Monocytes # (Auto) 0.1 Thou/mm3 (0.0-0.8); Monocytes % (Auto) 6 % (0-12); Neutrophils # (Auto) 0.9 Thou/mm3 (1.8-7.7); Neutrophils % (Auto) 48 % (37-80); Nucleated Red Blood Cell # 0.00 Thou/mm3 (0.00-0.00); Nucleated Red Blood Cell % 0 /100 WBC (0); RDW Standard Deviation 68.5 fL (35.1-43.9); Red Blood Count 3.31 Miln/mm3 (4.50-5.90); White Blood Count 1.9 Thou/mm3 (3.8-10.6)
[2025-01-02 11:53] LABS: Platelet Count 35 Thou/mm3 (140-440)
[2025-01-02 11:56] LABS: Slide Review Platelets confirmed
[2025-01-02 11:58] LABS: Alanine Aminotransferase 17 U/L (10-49); Albumin, Serum 4.1 gm/dL (3.5-5.0); Albumin/Globulin Ratio 2.1 (1.2-2.2); Alkaline Phosphatase 84 U/L (46-116); Anion Gap 10 (7-16); Aspartate Amino Transferase 15 U/L (0-34); BUN/Creatinine Ratio 9 Ratio (12-20); Bilirubin,Total 0.3 mg/dL (0.3-1.2); Blood Urea Nitrogen 8 mg/dL (9-23); Calcium 8.9 mg/dL (8.3-10.6); Calcium (Corrected) 8.9 mg/dL (8.5-10.1); Carbon Dioxide 25.1 mMol/L (20.0-31.0); Chloride 103 mMol/L (98-107); Creatinine (Component) 0.9 mg/dL (0.6-1.3); Globulin 2.0 gm/dL (2.3-3.5); Glucose 170 mg/dL (74-106); Osmolality,Calculated 277 (275-295); Potassium 3.7 mMol/L (3.4-5.1); Sodium 138 mMol/L (136-145); Total Protein 6.1 gm/dL (5.7-8.2); eGFR > 60 See Note
[2025-01-03 11:07] LABS: Basophils # (Auto) 0.0 Thou/mm3 (0.0-0.2); Basophils % (Auto) 1 % (0-2.5); Eosinophils # (Auto) 0.0 Thou/mm3 (0.0-0.5); Eosinophils % (Auto) 1 % (0-10); Hematocrit 28.4 % (41.0-53.0); Hemoglobin 9.4 g/dL (13.5-16.0); Immature Granulocytes Auto 0.00 Thou/mm3 (0.00-0.00); Lymphocytes # (Auto) 0.8 Thou/mm3 (1.0-4.8); Lymphocytes % (Auto) 54 % (10-50); Mean Corpuscular HGB Conc 33.1 g/dl (31.0-37.0); Mean Corpuscular Hemoglobin 29.5 pg (25.0-35.0); Mean Corpuscular Volume 89 fL (80-100); Monocytes # (Auto) 0.1 Thou/mm3 (0.0-0.8); Monocytes % (Auto) 7 % (0-12); Neutrophils # (Auto) 0.6 Thou/mm3 (1.8-7.7); Neutrophils % (Auto) 38 % (37-80); Nucleated Red Blood Cell # 0.00 Thou/mm3 (0.00-0.00); Nucleated Red Blood Cell % 0 /100 WBC (0); RDW Standard Deviation 69.2 fL (35.1-43.9); Red Blood Count 3.19 Miln/mm3 (4.50-5.90)
[2025-01-03 11:13] LABS: Platelet Count 35 Thou/mm3 (140-440); White Blood Count 1.5 Thou/mm3 (3.8-10.6)
[2025-01-03 11:17] LABS: Alanine Aminotransferase 15 U/L (10-49); Albumin, Serum 4.3 gm/dL (3.5-5.0); Albumin/Globulin Ratio 2.3 (1.2-2.2); Alkaline Phosphatase 86 U/L (46-116); Anion Gap 8 (7-16); Aspartate Amino Transferase 14 U/L (0-34); BUN/Creatinine Ratio 12 Ratio (12-20); Bilirubin,Total 0.3 mg/dL (0.3-1.2); Blood Urea Nitrogen 11 mg/dL (9-23); Calcium 9.0 mg/dL (8.3-10.6); Calcium (Corrected) 9.0 mg/dL (8.5-10.1); Carbon Dioxide 25.3 mMol/L (20.0-31.0); Chloride 105 mMol/L (98-107); Creatinine (Component) 0.9 mg/dL (0.6-1.3); Globulin 1.9 gm/dL (2.3-3.5); Glucose 134 mg/dL (74-106); Osmolality,Calculated 277 (275-295); Potassium 4.0 mMol/L (3.4-5.1); Sodium 138 mMol/L (136-145); Total Protein 6.2 gm/dL (5.7-8.2); eGFR > 60 See Note
[2025-01-03 11:34] LABS: LDH (Lactate Dehydrogenase) 160 U/L (120-246)
[2025-01-03 12:05] LABS: Slide Review Platelets confirmed
[2025-01-04 11:20] LABS: Basophils # (Auto) 0.0 Thou/mm3 (0.0-0.2); Basophils % (Auto) 0 % (0-2.5); Eosinophils # (Auto) 0.0 Thou/mm3 (0.0-0.5); Eosinophils % (Auto) 0 % (0-10); Hematocrit 28.7 % (41.0-53.0); Hemoglobin 9.6 g/dL (13.5-16.0); Immature Granulocytes Auto 0.05 Thou/mm3 (0.00-0.00); Lymphocytes # (Auto) 0.7 Thou/mm3 (1.0-4.8); Lymphocytes % (Auto) 32 % (10-50); Mean Corpuscular HGB Conc 33.4 g/dl (31.0-37.0); Mean Corpuscular Hemoglobin 29.5 pg (25.0-35.0); Mean Corpuscular Volume 88 fL (80-100); Monocytes # (Auto) 0.3 Thou/mm3 (0.0-0.8); Monocytes % (Auto) 13 % (0-12); Neutrophils # (Auto) 1.1 Thou/mm3 (1.8-7.7); Neutrophils % (Auto) 52 % (37-80); Nucleated Red Blood Cell # 0.00 Thou/mm3 (0.00-0.00); Nucleated Red Blood Cell % 0 /100 WBC (0); RDW Standard Deviation 68.4 fL (35.1-43.9); Red Blood Count 3.25 Miln/mm3 (4.50-5.90); White Blood Count 2.1 Thou/mm3 (3.8-10.6)
[2025-01-04 11:35] LABS: Alanine Aminotransferase 14 U/L (10-49); Albumin, Serum 4.3 gm/dL (3.5-5.0); Albumin/Globulin Ratio 2.2 (1.2-2.2); Alkaline Phosphatase 94 U/L (46-116); Anion Gap 9 (7-16); Aspartate Amino Transferase 11 U/L (0-34); BUN/Creatinine Ratio 12 Ratio (12-20); Bilirubin,Total 0.3 mg/dL (0.3-1.2); Blood Urea Nitrogen 11 mg/dL (9-23); Calcium 9.8 mg/dL (8.3-10.6); Calcium (Corrected) 9.8 mg/dL (8.5-10.1); Carbon Dioxide 24.7 mMol/L (20.0-31.0); Chloride 103 mMol/L (98-107); Creatinine (Component) 0.9 mg/dL (0.6-1.3); Globulin 2.0 gm/dL (2.3-3.5); Glucose 180 mg/dL (74-106); Osmolality,Calculated 278 (275-295); Potassium 4.0 mMol/L (3.4-5.1); Sodium 137 mMol/L (136-145); Total Protein 6.3 gm/dL (5.7-8.2); eGFR > 60 See Note
[2025-01-04 11:58] LABS: Band Neutrophils (Manual) 4 % (0-6); Lymphocytes (Manual) 39 % (20-44); Monocytes (Manual) 12 % (2-9); Neutrophils (Manual) 45 % (50-70)
[2025-01-04 11:59] LABS: Anisocytosis 2+; Poikilocytosis 1+
[2025-01-04 12:00] LABS: Platelet Count 51 Thou/mm3 (140-440)
[2025-01-04 12:01] LABS: Slide Review Platelets confirmed
[2025-01-10 06:26] LABS: Haptoglobin* 291 mg/dL (43-212)
== END 2025-01-22 23:59 | disposition home or self-care (01) ==
LOC: SCTC 10:15
PROVIDERS: PCP Physician Assistant Medical; Referring Provider Physician Assistant Medical; Visit Provider Internal Medicine Hematology & Oncology
DX: Z51.11 Encounter for antineoplastic chemotherapy (principal); C62.11 Malignant neoplasm of descended right testis; Z90.79 Acquired absence of other genital organ(s); M79.605 Pain in left leg; M79.604 Pain in right leg; N50.89 Other specified disorders of the male genital organs; K40.90 Unilateral inguinal hernia, without obstruction or gangrene, not specified as recurrent; F32.A Depression, unspecified
CPT/HCPCS: 36415; 36591; 80053; 82105; 83010; 83615; 83735; 85025; 86880; 96365; 96366; 96367; 96368; 96372; 96375; 96409; 96413; 96417; A4216; J1100; J1642; J1938; J2150; J2405; J2470; J2471; J2919; J3475; J3480; J7030; J7040; J7050; J9040; J9060; J9181; Q5101; A9270

== ENCOUNTER → 2025-01-08 | Outpatient (CLI) | payer MEDICAID, SELFPAY ==
--- NOTE | 2025-01-08 15:30 | ECHO_ITS ---
Transthoracic Echo Report Ht (in): 64 Wt (lb): 220 Exam Location: Echo Lab Status: [facility] [employer] Housekeeper: Martha Goel Indications: Procedure Performed: BP: / HR: Technical Quality: Poor MEASUREMENTS (Male / Female) Normal Values 2D ECHO LV Diastolic Diameter PLAX 4.9 cm 4.2 - 5.9 / 3.9 - 5.3 cm LV Systolic Diameter PLAX 3.3 cm IVS Diastolic Thickness 1.0 cm 0.6 - 1.0 / 0.6 - 0.9 cm LVPW Diastolic Thickness 1.1 cm 0.6 - 1.0 / 0.6 - 0.9 cm LV Relative Wall Thickness 0.4 LVOT Diameter 2.0 cm LA Systolic Diameter LX 3.3 cm 3.0 - 4.0 / 2.7 - 3.8 cm LV Ejection Fraction MOD BP 59.0 % >= 55 % LV Ejection Fraction MOD 4C 48.8 % LV Ejection Fraction 4C AL 49.9 % LV Ejection Fraction MOD 2C 68.3 % LV Ejection Fraction 2C AL 70.1 % LA Volume Index 17.3 cm?/m? 16 - 28 cm?/m? M-MODE Aortic Root Diameter MM 3.0 cm LA Systolic Diameter MM 3.6 cm LA Ao Ratio MM 1.2 AV Cusp Separation MM 2.1 cm DOPPLER AV Peak Velocity 136.0 cm/s AV Peak Gradient 7.4 mmHg AV Mean Gradient 4.0 mmHg AV Velocity Time Integral 27.9 cm LVOT Peak Velocity 113.0 cm/s LVOT Peak Gradient 5.1 mmHg LVOT Velocity Time Integral 18.6 cm AV Area Cont Eq vti 2.1 cm? AV Area Cont Eq pk 2.6 cm? MV Area PHT 5.5 cm? Mitral E Point Velocity 123.0 cm/s Mitral A Point Velocity 106.0 cm/s Mitral E to A Ratio 1.2 LV E' Lateral Velocity 7.4 cm/s Mitral E to LV E' Lateral Ratio 16.6 LV E' Septal Velocity 10.3 cm/s Mitral E to LV E' Septal Ratio 11.9 FINDINGS Left Ventricle Normal left ventricular size, wall thickness, systolic function with no obvious regional wall motion abnormalities. Normal left ventricular diastolic filling pattern for age. The ejection fraction is visually estimated at 65 %. Right Ventricle The right ventricle is normal in size and systolic function. Left Atrium The left atrium is normal by two-dimensional, color flow and Doppler imaging with no structural abnormalities, no thrombus formation present. Right Atrium The right atrium is normal by two-dimensional imaging, color flow and Doppler imaging with no structural abnormalities, no thrombus formation present. Atrial Septum The interatrial septum appears normal with no evidence of a shunt. Aorta The aorta is normal by two-dimensional, color flow and Doppler interrogation. Mitral Valve The mitral valve is normal by two-dimensional, color flow and Doppler interrogation. There is no significant mitral valve regurgitation, stenosis or prolapse. Aortic Valve The aortic valve is trileaflet and normal by two-dimensional, color flow and Doppler interrogation. There is no significant aortic valve regurgitation. Tricuspid Valve The tricuspid valve is normal by two-dimensional, color flow and Doppler interrogation. There is no significant tricuspid valve regurgitation. Pulmonic Valve The pulmonic valve is not well visualized. There is no significant pulmonic valve regurgitation. Vessels The pulmonary artery appears normal. The inferior vena cava pulmonary and hepatic veins appear normal. Pericardium The pericardium is normal by two-dimensional imaging. There is no significant pericardial effusion. CONCLUSIONS Indication: Malignant neoplasm of descended right testis The transthoracic study is normal by two-dimensional, color flow imaging and Doppler interrogation. Normal left ventricular size and function. Approximate ejection fraction is 65%. Trace mitral and trace tricuspid regurgitation No wall motion abnormalities Desiree Pinzon (Electronically Signed) Final Date: 08 January 2025 17:46
== END | disposition home or self-care (01) ==
LOC: SDIM 01-16 13:34
PROVIDERS: PCP Family Medicine; Referring Provider Radiology Therapeutic Radiology; Visit Provider Radiology Therapeutic Radiology
DX: I08.1 Rheumatic disorders of both mitral and tricuspid valves (principal); C62.11 Malignant neoplasm of descended right testis
CPT/HCPCS: 93306